=== PATIENT | female | born 1965 | race African-American/Black ===

== ENCOUNTER → 2018-03-29 | Outpatient (CLI) | payer BC | END | disposition home or self-care (01) | LOC: MRI 14:48 | DX: M48.02 Spinal stenosis, cervical region (principal); M50.223 Other cervical disc displacement at C6-C7 level; M48.54XD Collapsed vertebra, not elsewhere classified, thoracic region, subsequent encounter for fracture with routine healing; I10 Essential (primary) hypertension; E78.00 Pure hypercholesterolemia, unspecified | CPT/HCPCS: 72141; 72146 ==

== ENCOUNTER → 2019-09-10 | Outpatient (CLI) | payer BC ==
[2016-09-09 11:20] VITALS: BP 125/89
[~2019-09-10] MED LIST: CLON0.2T PO; CYCL10TA2 PO; DICY10CA3 PO; LISI1TAB20 PO
--- NOTE | 2019-09-10 14:22 | KCIC ---
MR of the left shoulder HISTORY: Left shoulder pain, chronic. Numbness. TECHNIQUE: Routine multiplanar sequences are obtained. FINDINGS: Acromioclavicular joint is mildly degenerative with small undersurface osteophytes and mass effect. Mild motion degradation. Mild rotator cuff tendinosis. No measurable rotator cuff tear or rupture. No significant subdeltoid bursal effusion. No significant glenohumeral joint effusion. No evidence of labral tear or detachment. The biceps tendon is intact. No acute fracture. No aggressive bone destruction. No acute soft tissue abnormality. IMPRESSION: 1. Mild rotator cuff tendinosis without definite tear. 2. 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 Electronically signed by: Deng Barakat MD (09/10/2019 2:19 PM) [id number]
== END | disposition home or self-care (01) ==
LOC: KCIC MRI 12:12
PROVIDERS: ATTEND Family Medicine
DX: M19.012 Primary osteoarthritis, left shoulder (principal); M75.92 Shoulder lesion, unspecified, left shoulder
CPT/HCPCS: 73221

== ENCOUNTER → 2019-09-13 | Outpatient (CLI) | payer BC ==
[2016-09-09 11:20] VITALS: BP 125/89
--- NOTE | 2019-09-13 16:59 | KCIC ---
PA and lateral chest radiographs 09/13/2019 CLINICAL HISTORY: Cough. PA and lateral digital radiographs of the chest were obtained. Comparison is made to a CT scan of the chest dated 05/16/2008. The cardiac silhouette is normal in size. The thoracic aorta is tortuous. Atherosclerotic calcification of the thoracic aorta is seen. Calcified subcarinal and right paratracheal lymph nodes are seen, unchanged. A calcified granuloma is seen involving the right middle lobe. Left basilar subsegmental atelectasis and/or infiltrate is seen. No pneumothorax or pleural effusion is noted. Old compression deformity of a superior thoracic vertebral body is seen. IMPRESSION: Left basilar subsegmental atelectasis and/or infiltrate. Electronically signed by: Audie Wang MD (09/13/2019 4:55 PM) [id number]
== END | disposition home or self-care (01) ==
LOC: KCIC 10:34
PROVIDERS: ATTEND Family Medicine
DX: J84.10 Pulmonary fibrosis, unspecified (principal); I70.0 Atherosclerosis of aorta
CPT/HCPCS: 71046

== ENCOUNTER → 2019-10-22 | Outpatient (CLI) | payer BC ==
[2016-09-09 11:20] VITALS: BP 125/89
--- NOTE | 2019-10-22 11:54 | KCIC ---
MRI Cervical Spine Without Contrast History: Cervical sprain, left cervical radiculitis, left side neck pain, shoulder pain, left upper extremity numbness Technique: Multiplanar, multi sequential noncontrast MR imaging was performed of the cervical spine. Comparison: March 29, 2018 Findings: Cervical cord caliber is within normal limits without defined or expansile signal abnormality. There is minimal inferior C5 endplate edema although decreased, no fluid in the intervertebral disc spaces. There is again moderate degenerative disc disease greater anteriorly at C5-C6. There is again posterior annular tear at C6-7. Superior endplate concavity of T1 and T2 is unchanged. There is straightening of the cervical spine. There is similar very mild grade 1 anterior spondylolisthesis C5-C6. Incompletely evaluated, there is some T2 hyperintense signal of the right, posterior, superior thoracic musculature. C2-C3: Neural foramina and spinal canal are adequate. C3-C4: There is again negligible disc osteophyte complex and central protrusion. Central canal is again borderline about 10 mm. Neural foramina are adequate. C4-C5: Spinal canal and neural foramina are adequate. C5-C6: There is again minimal disc osteophyte complex and bulge. Central canal is borderline about 10 mm. There is mild right uncovertebral degenerative change. Neural foramina are not significantly narrowed likely very mild narrowing on the right. C6-C7: There is residual minimal disc osteophyte complex and bulge although decreased degree of indentation upon the ventral thecal sac in interval, central canal now minimally narrowed about 8 to 9 mm versus previously about 6 to 7 mm. Neural foramina are adequate. C7-T1: Spinal canal and neural foramina are adequate. Impression: 1. Comparing with the March 2018 exam, overall degree of spinal stenosis at C6-7 has decreased, mild spinal stenosis at this level on the order of 8 to 9 mm on today's exam. There is again moderate degenerative disc disease at C5-C6. There is mild spondylosis at C5-6 and C6-7. 2. Incompletely evaluated on this exam, there is T2 hyperintense signal of the right, posterior, superior thoracic musculature which could be related to strain injury or etiology such as hemangioma. Electronically signed by: Rogelio Hay MD (10/22/2019 11:51 AM) [facility]
== END | disposition home or self-care (01) ==
LOC: KCIC MRI 10:47
PROVIDERS: ATTEND Physical Medicine & Rehabilitation
DX: M50.122 Cervical disc disorder at C5-C6 level with radiculopathy (principal); M50.123 Cervical disc disorder at C6-C7 level with radiculopathy; M43.12 Spondylolisthesis, cervical region; M25.78 Osteophyte, vertebrae; M48.02 Spinal stenosis, cervical region; M47.22 Other spondylosis with radiculopathy, cervical region
CPT/HCPCS: 72141